=== PATIENT | male | born 1990 | race Caucasian/White ===

== ENCOUNTER → 2016-10-03 | Outpatient (CLI) | payer OTHER ==
[~2016-10-03] MED LIST: MAGNEVIST IV PRN
--- NOTE | 2016-10-03 14:32 | DIAGNOSTIC IMAGING REPORT ---
RIGHT SHOULDER INJECTION UNDER FLUOROSCOPIC GUIDANCE CLINICAL HISTORY: Right shoulder pain. Injection for MR arthrogram. PROCEDURE: The risks, benefits, and alternatives to the procedure were discussed with the patient. Written informed consent was obtained. The patient was placed supine on the fluoroscopy table, and a right shoulder injection was performed under fluoroscopic guidance. The area was prepped and draped in the usual sterile fashion. The skin and soft tissues anesthetized with local 1% lidocaine. The right shoulder joint was accessed utilizing a 22-gauge needle, and approximately 8 cc of a mixture of gadolinium contrast, Optiray 300, and saline was injected into the joint space under fluoroscopic guidance. There was normal distention of the capsule. The procedure was well tolerated and without immediate complication. The patient was then transferred to MRI for MR arthrography. FLUOROSCOPY TIME: 35 seconds IMPRESSION: Unremarkable injection of the right shoulder under fluoroscopic guidance. Electronically signed by: Aquiles Zarate M.D. 10/03/2016 2:31 PM Dictated Date/Time: 10/03/2016 2:31 PM
--- NOTE | 2016-10-03 15:46 | DIAGNOSTIC IMAGING REPORT ---
RIGHT SHOULDER MRI with INTRA-ARTICULAR CONTRAST HISTORY: Right shoulder pain. TECHNIQUE: Multiplanar multisequence MRI of the right shoulder was performed following the intra-articular injection of contrast. COMPARISON STUDY: None. FINDINGS: AC joint: Intact Rotator cuff: The subscapularis, teres minor, and infraspinatus tendons are intact. There is a small linear full-thickness tear within the mid to distal supraspinatus tendon. The remaining fibers of the supraspinatus tendon demonstrate a high-grade partial tear. No associated retraction. Labrum: Intact Biceps tendon: Intact Bones: Mild marrow edema and cystic change along the lateral humeral head. No fracture or dislocation. Cartilage: Intact Miscellaneous: There is a 2 mm intra-articular loose body anterior to the glenoid. IMPRESSION: 1. Small linear full-thickness tear within the mid to distal supraspinatus tendon. The remaining fibers of the supraspinatus tendon demonstrate a high-grade partial tear. 2. The labrum appears intact. 3. A 2 mm intra-articular loose body anterior to the glenoid. Electronically signed by: Pako Boone M.D. 10/03/2016 3:45 PM Dictated Date/Time: 10/03/2016 3:36 PM
== END | disposition home or self-care (01) ==
LOC: C.MRIBC 12:45
PROVIDERS: ATTEND Family Medicine
DX: M25.511 Pain in right shoulder (principal); M25.512 Pain in left shoulder